=== PATIENT | female | born 1995 | race Caucasian/White ===

== ENCOUNTER 2017-06-08 08:19 | Day surgery (SDC) | payer OTHER ==
[~2017-06-08 08:19] MED LIST: Acetaminophen TAB* 325 MG PO ONE; Buffered Lidocaine 0.9% SYRIN* 5 ML/SYR SYRINGE INTRADERM ONE; Dexamethasone IV* 4 MG/ML 1 ML (4 MG) IV SLOW PU ONE; Famotidine IV* 10 MG/ML 2 ML (20 mg) IV ONE
[2017-06-08] MEDS ORDERED: Dexamethasone IV* 4 MG/ML 1 ML (4 MG) ONE (08:27)
[2017-06-08] MEDS ORDERED: Famotidine IV* 10 MG/ML 2 ML (20 mg) ONE (08:27)
[2017-06-08] MEDS ORDERED: Acetaminophen TAB* 325 MG ONE (08:27)
[2017-06-08] MEDS ORDERED: ceFAZolin 2 GM in 100 MLS NS (*) BAG IVPB ONE (08:27)
[2017-06-08] MEDS ORDERED: Buffered Lidocaine 0.9% SYRIN* 5 ML/SYR SYRINGE ONE (08:27)
[2017-06-08] MEDS ORDERED: Midazolam* 1 MG/ML 2 ML VIAL (2 MG) ONE (09:31)
[2017-06-08] MEDS ORDERED: fentaNYL* 50 MCG/ML 2 ML VIAL (100 MCG VIAL) ONE (09:31)
[2017-06-08] MEDS ORDERED: Lidocaine 2% PF * 5 ML VIAL ONE (09:32)
[2017-06-08] MEDS ORDERED: Propofol* 10 MG/ML 20 ML BTL IV PUSH ONE (09:32)
[2017-06-08] MEDS ORDERED: Bupivacaine 0.5% SDV PF* 10-30ML VIAL ONE (10:06)
[2017-06-08] MEDS ORDERED: Bupivacaine 0.25% SDV* 30 ML ONE (10:06)
[2017-06-08] MEDS ORDERED: HYDROmorphone INJ* 1 MG/ML CARPUJECT SYRINGE ONE ×2 (10:46→11:50)
[2017-06-08] MEDS ORDERED: Scopolamine 1.5 mg* PATCH TRANSDERM PRN (10:56)
[2017-06-08] MEDS ORDERED: fentaNYL* 50 MCG/ML 2 ML VIAL (100 MCG VIAL) IV PRN (10:56)
[2017-06-08] MEDS ORDERED: PROCHLORPERAZINE INJ 5 MG/ML 2 ML VIAL IV PRN (10:56)
[2017-06-08] MEDS ORDERED: oxyCODONE TAB* 5 MG TAB PO PRN (10:56)
[2017-06-08] MEDS ORDERED: HYDROmorphone INJ* 1 MG/ML CARPUJECT SYRINGE IV PRN (10:56)
[2017-06-08] MEDS ORDERED: Naloxone* 0.4 MG/ML 1 ML VIAL IV PRN (10:56)
[2017-06-08] MEDS ORDERED: Ondansetron INJ* 2 MG/ML VIAL IV PRN (10:56)
[2017-06-08] MEDS ORDERED: diPHENhydraMINE IV* 50 MG/ML 1 ml VIAL (BENADRYL) IV PRN (10:56)
[2017-06-08] MEDS ORDERED: Ondansetron INJ* 2 MG/ML VIAL ONE (11:34)
[2017-06-08] MEDS ORDERED: Ketorolac INJ* 30 MG/ML 1 ML VIAL ONE (11:34)
--- NOTE | 2017-06-08 13:05 | OP ---
Operative Report - Blank - Operative Report Date of Operation: 06/08/17 Note: PATIENT: Trent Hickey DATE OF : [birth year] DATE OF SURGERY: 06/08/17 SURGEON: Amos Steven MD PRINCIPAL STATISTICAL PROGRAMMER: LOUIE Santos, whos assistance was necessary for positioning, retraction, help with instrumentation, and closure. ANESTHESIOLOGIST: Dr. 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 Right ankle arthroscopy with extensive debridement. 2. Curettage and microfracture of medial tibial plafond osteochondral lesion. 3. Right ankle modified Brostrom procedure lateral ligament reconstruction. ANESTHESIA: GETA IMPLANTS: none TOURNIQUET TIME: Less than 2 hours with a well-padded thigh tourniquet at 250 mmHg SPECIMENS: none ESTIMATED BLOOD LOSS: minimal COMPLICATIONS: none STATUS: Stable from the operating room to the recovery room and then home. INDICATIONS FOR PROCEDURE: Trent has had long-standing right ankle pain and instability, refractory to extensive nonoperative treatment. Both operative and non operative treatment alternatives were reviewed. Further, the nature and risks of surgery were reviewed in careful detail, in the office as well as the pre-operative holding area. Our discussions regarding the risks of surgery included, but were not limited to, infection, wound problems, nerve injury, neuroma, RSD, persistent symptoms, blood clot, failure of the surgery, and even the remote chance of catastrophic complication, including loss of limb. DESCRIPTION OF PROCEDURE: The patient was seen in the preoperative holding unit and informed written consent was obtained. The appropriate extremity was marked. The patient was then brought to the operating room and carefully positioned on the operating room table. Anesthesia was induced. All bony prominences were padded with great care. A well-padded thigh tourniquet was placed. A chlorhexidine based pre- scrub was performed followed by a chloraprep prep and drape in standard sterile fashion. A surgical safety pause was then conducted in which we confirmed the appropriate patient, extremity, planned procedure, availability of equipment, indication and administration of prophylactic antibiotics, and DVT prophylaxis in the form of a compression boot on the non-surgical extremity. An Esmarch exsanguination of the limb was then performed and the tourniquet inflated. The leg was positioned in the noninvasive ankle arthroscopy leg bridges setup. I began by establishing the anteromedial portal. I utilized a spinal needle for this. Great care was taken to protect the superficial neurovascular structures. Under direct visualization, I then established an anterolateral portal. Great care was taken to protect the superficial peroneal nerve. I utilized the full radius shaver to remove a considerable amount of synovitis from the anterior aspect of the ankle joint. This was carefully removed to give a nice view of the ankle joint. There was also a significant amount of scar tissue in the lateral gutter, which was debrided. There was an osteochondral lesion of the medial shoulder of the tibial plafond. There were no additional chondral lesions appreciated. At this point, I utilized a ringed curette to remove loose debris from within the osteochondral lesion. This was curetted back to a stable rim around the perimeter of lesion. The calcified cartilage layer was then removed. I then utilized the microfracture awl to microfracture the lesion. There was healthy bleeding from the subchondral bone. I then again utilized the full radius shaver to remove all additional debris from the ankle joint. I removed the arthroscopic equipment and closed the portals utilizing 3-0 nylon suture. I then made an approximately 8 cm incision overlying the distal fibula. This was made in line with the distal fibula and then curving anteriorly in line with the fourth ray. Dissection was carried down through the soft tissues. Superficial hemostasis was obtained. I dissected down to the lateral aspect of the fibula at the periosteal and ligamentous layer and then dissected anteriorly to expose the anterolateral ankle ligaments. We protected the superficial peroneal nerve at all times, which was not visualized within our field. Once we had adequately exposed a pocket anterior to the ligaments, we sharply took the ligaments down off of the anterior and distal aspect of the fibula using a 15 blade. The lateral ankle ligaments were quite atrophic. The inferior extensor retinaculum was exposed and protected for subsequent repair later in the procedure. I then utilized a rongeur to make a trough along the fibula to receive the reconstructed ligaments. I then utilized a 0.062 inch K-wire to drill holes in the fibula for a transosseous suture repair of the lateral ligaments utilizing a horizontal mattress suture. Multiple #1 Vicryl sutures were passed through the fibula and then through the ligaments and then back through the fibula. These sutures were all passed with great care taken to appropriately tension both the ATFL as well as the CFL in order to get a nice tight repair. We held the ankle in a dorsiflexed and everted position while the ligaments and sutures were tied down over the fibular bone bridges. These held the ankle in a much improved position with excellent tension on the ligaments. We then utilized a rotational flap from the periosteum overlying the distal fibula to augment the repair. This was sewn down using a horizontal mattress stich overlying the ATFL. We further augmented the repair by bringing the inferior extensor retinaculum up to the fibula. There was a much improved anterior drawer at this point as compared to pre-operatively. The wound was copiously irrigated. At this point, a sterile dressing was applied and the ankle was splinted in a neutral position. The patient was then awakened from anesthesia and transferred to the recovery room in stable condition. There were no complications. All needle and sponge counts were correct at the end of the case. ATTESTATION: I attest I was present and scrubbed and performed the critical portions of the procedure myself. POSTOPERATIVE PLAN: The patient will remain nonweightbearing for an anticipated duration of six weeks. Follow up will be in two weeks for likely suture removal, Steri-Strip application and transition into a short leg cast.
[2017-06-08 13:58] VITALS: BP 111/58
[2017-06-11] MEDS ORDERED: Scopolamine PATCH Remove* 1 NOTE MISC PATCH OFF ONE (10:57)
== END 2017-06-08 13:58 | disposition home or self-care (01) ==
LOC: OR 08:19
PROVIDERS: ATTEND Orthopaedic Surgery
DX: M25.371 Other instability, right ankle (principal); M93.271 Osteochondritis dissecans, right ankle and joints of right foot
CPT/HCPCS: 81025; A9270-GY; C1776; J1100; J1170; J1885; J2250; J2405; J2704; J3010